=== PATIENT | male | born 1940 | race Caucasian/White ===

== ENCOUNTER → 2017-02-26 | Outpatient (CLI) | payer MEDICARE, OTHER | LOC: COL.VAS 12:06 | DX: I08.3 Combined rheumatic disorders of mitral, aortic and tricuspid valves (principal); I28.8 Other diseases of pulmonary vessels; I77.810 Thoracic aortic ectasia ==

== ENCOUNTER 2018-02-05 08:29 | Day surgery (SDC) | payer MEDICARE, OTHER ==
[~2018-02-05] VITALS: Ht 177.8 cm; Wt 85.6 kg
[2018-02-05] MEDS ORDERED: CARDIZEM120 MG PO (09:02)
[2018-02-05] MEDS ORDERED: HCTZ12.5TAB PO (09:06)
[2018-02-05] MEDS ORDERED: PRAVACHOL 40MG40 MG PO (09:07)
[2018-02-05] MEDS ORDERED: PROSCAR 5MG5 MG PO (09:07)
[2018-02-05] MEDS ORDERED: FLOMAX 0.40.4 MG/CAP PO (09:07)
[2018-02-05] MEDS ORDERED: LASIX 40MG TABL40 MG PO (09:08)
[2018-02-05] MEDS ORDERED: DEXAMETHASONE PO (09:10)
[2018-02-05] MEDS ORDERED: IRON PO (09:10)
[2018-02-05] MEDS ORDERED: COLACE 100100 MG/CAP PO ×2 (09:10→10:54)
[2018-02-05] MEDS ORDERED: VITAMIN D 1001000 IU PO (09:11)
[2018-02-05] MEDS ORDERED: VITAMIN C500 MG PO (09:11)
[2018-02-05] MEDS ORDERED: B-121000 MCG PO (09:12)
[2018-02-05] MEDS ORDERED: NATURAL FLAX1000 MG PO (09:12)
[2018-02-05 09:13] VITALS: BP 122/59; PULSE 56; TEMP 97.2
[2018-02-05] MEDS ORDERED: NITRO-DUR0.2 MG/PAT TD (09:13)
[2018-02-05] MEDS ORDERED: CYTOXAN1 GM IV (09:16)
[2018-02-05] MEDS ORDERED: VELCADE3.5 MG IM (09:16)
[2018-02-05 10:37] VITALS: BP 103/55; PULSE 50; TEMP 97.4
[2018-02-05] MEDS ORDERED: NORCO 325 MG-51 TAB PO (10:54)
[2018-02-05] MEDS ORDERED: MOTRIN 600600 MG/TAB PO (10:54)
[2018-02-05 10:55] VITALS: BP 104/47; PULSE 57
[2018-02-05 11:10] VITALS: BP 111/52; PULSE 50
[2018-02-05 11:30] VITALS: BP 112/55; PULSE 52
== END 2018-02-05 11:50 | disposition home or self-care (01) ==
LOC: SDCO 08:29
DX: C90.00 Multiple myeloma not having achieved remission (principal); N40.0 Benign prostatic hyperplasia without lower urinary tract symptoms; E78.5 Hyperlipidemia, unspecified; I10 Essential (primary) hypertension; E85.9 Amyloidosis, unspecified; G47.33 Obstructive sleep apnea (adult) (pediatric); I11.0 Hypertensive heart disease with heart failure; I50.9 Heart failure, unspecified; D64.9 Anemia, unspecified; Z87.891 Personal history of nicotine dependence
CPT/HCPCS: C1788; J0690; J1644; J2704; J3010; J7120